=== PATIENT | female | born 1935 | race Caucasian/White ===

== ENCOUNTER 2020-01-11 16:32 | Emergency (ER) | payer MEDICARE, OTHER ==
[~2020-01-11] VITALS: Ht 149.9 cm; Wt 52.0 kg
[~2020-01-11 16:32] MED LIST: ATEN25TA PO; NITR50CA PO
[2020-01-11 16:35] VITALS: BP 156/86
--- NOTE | 2020-01-11 16:45 | NUR ---
Pt felt like she had something stuck in her throat and went to and then was sent here. Pt on the way here she felt that the obstruction dislodged and she was able to drink water. Pt reports she feels fine now. Pt has significant hx of esophageal obstructions 12 to count last time was in 2011. Pt resting and is calm and able to drink 80cc of h2o.
--- NOTE | 2020-01-11 17:13 | NUR ---
Patient/Caregiver given discharge instructions and they have confirmed that they understand the instructions. Patient ambulatory with steady gait.
== END 2020-01-11 17:15 | disposition home or self-care (01) ==
LOC: ED 16:45
DX: T18.128A Food in esophagus causing other injury, initial encounter (principal); X58.XXXA Exposure to other specified factors, initial encounter; Y93.89 Activity, other specified; Y92.89 Other specified places as the place of occurrence of the external cause; Y99.8 Other external cause status
CPT/HCPCS: 99283